=== PATIENT | male | born 1985 | race Caucasian/White ===

== ENCOUNTER 2017-06-29 15:58 | Emergency (ER) | payer BC ==
[2017-06-29] MEDS: FLUORESCEIN OPHTH 1 MG STRIP OD (16:45)
[2017-06-29] MEDS: TETRACAINE 0.5% OPHTH SOLN 4ML OD (16:45)
[2017-06-29] MEDS: PROPARACAINE 0.5% OPHTH SOL 15ML OD (17:15)
[2017-06-29] MEDS: GATIFLOXACIN 0.5% 2.5ML OPHTH SOL OD (18:18)
== END 2017-06-29 18:46 | disposition home or self-care (01) ==
LOC: M ED 15:58
DX: S05.01XA Injury of conjunctiva and corneal abrasion without foreign body, right eye, initial encounter (principal); T15.01XA Foreign body in cornea, right eye, initial encounter; Y92.9 Unspecified place or not applicable; Y93.89 Activity, other specified; Y99.9 Unspecified external cause status; Z87.891 Personal history of nicotine dependence
CPT/HCPCS: 65205